=== PATIENT | male | born 1990 | race Caucasian/White ===

== ENCOUNTER 2016-06-17 11:11 | Emergency (ER) | payer MEDICAID ==
[~2016-06-17] VITALS: Ht 177.8 cm; Wt 119.5 kg
[2016-06-17 11:14] VITALS: Ht 177.8 cm; Wt 119.5 kg
--- NOTE | 2016-06-17 20:07 | ERD ---
ER Documentation Chief Complaint Date/Time DATE: 06/17/16 TIME: 20:00 Chief Complaint insomnia only sleeping 6-7 hrs a night x 2 weeks and anxiety HPI 25-year-old man is states is a recent immigrant from [place] states he has had difficulties sleeping at night because he has either been sleeping in his father 's garage which she states at times can get loud, or in a hotel room such as last night. He states the hotel was very noisy and therefore he had difficulty sleeping. He states sometimes he hears sounds in his ears as well. He denies history of diagnosis of hypertension and he states he is managing his symptoms by "smoking weed", but would like something to help him sleep at nights. He denies suicidal homicidal ideation, no fevers or chills, no weight loss, no vomiting or diarrhea, no domestic violence. ROS All systems reviewed and are negative except as per history of present illness. Medications Home Meds Reported Medications [Unknown] No Conflict Check 04/21/09 Allergies Allergies: Coded Allergies: No Known Allergy (Unverified , 06/17/16) PMhx/Soc Denies Medical and Surgical Hx: pt denies Medical Hx, pt denies Surgical Hx Hx Alcohol Use: Yes Smoking Status: Current every day smoker FmHx Family History: No diabetes Physical Exam Vitals Vital Signs Date Time Temp Pulse Resp B/P Pulse Ox O2 Delivery O2 Flow Rate FiO2 06/17/16 11:14 98.1 106 18 168/100 99 Physical Exam GENERAL: Well-developed, anxious HEENT: Moist mucous membranes, pink conjunctiva, no cervical spine tenderness or step-off deformities, no goiter, no jaundice or icterus, extraocular movements intact without pain. No submandibular induration, and no pharyngeal erythema NEURO: Alert and oriented 3, cranial nerves II through XII intact bilaterally, pupils equal round reactive to light, no focal deficits or facial asymmetry, sensation intact distally Strength 5/5 in upper and lower extremities bilaterally CARDIAC: Tachycardic and regular, no murmurs rubs or gallops LUNGS: Clear bilaterally no wheezing crackles or stridor ABDOMEN: Soft nontender, no guarding, no rigidity, no rebound, no psoas sign no obturator sign. Normoactive bowel sounds SKIN: Warm and dry to touch, no abrasions, contusions, or hematomas, no lacerations, no ecchymosis, no target lesions, and without ulcers EXTREMITIES: No clubbing cyanosis or edema, calves are bilaterally symmetrical, no Homans sign, no popliteal cord sign. Distal pulses equal and bilateral PSYCH: Anxious Procedures/MDM Patient stated he wanted medication to help him sleep although upon further HPI readily admitted that the reason he was not sleeping was because of his situation at nights which included sleeping in either allowed motel room or garage. He admitted to being anxious and admitted that he was hypertensive but stated he is managing his symptoms by smoking weed. He appears anxious here in the emergency department and has a bizarre affect and given some of the other things she stated I suspect he has early paranoid schizophrenia. He is still able to make his own decisions and he was refusing all medications including antihypertensives. I refused to prescribe hypnotics, which it seems is what he wanted, instead I recommended he stay for further evaluation and management of his high blood pressure, and also recommended a tele-psychiatry evaluation. Patient refused and again denied suicidal homicidal ideation. I gave him both verbal and written recommendations and instructions and provided him the address and phone number to multiple nearby clinics. Differential diagnoses considered, included but not limited to acute coronary syndrome, pulmonary embolism, aortic dissection, abdominal aortic aneurysm, sepsis, stroke, meningitis, encephalitis, pneumonia, appendicitis, cholecystitis , bowel obstruction, pyelonephritis, nephrolithiasis, cystitis, as well as metabolic, hematologic, and electrolyte abnormalities. As well as abscess, cellulitis, fractures, and dislocations. Patient feels much better at this time, and vital signs are normal, symptoms have improved. I did give strict instructions to return to the ED if symptoms continue or worsen, patient will otherwise follow-up with primary care physician. Patient understood instructions and agreed to plan. Departure Diagnosis: Primary Impression: Anxiety Additional Impressions: Hypertension Hypertension type: essential hypertension Qualified Code: I10 - Essential hypertension Schizophrenia Schizophrenia type: unspecified Qualified Code: F20.9 - Schizophrenia, unspecified type Condition: Good Patient Instructions: Anxiety Reaction, Insomnia, Schizophrenia, Paranoid Type Referrals: COMMUNITY CLINICS YOU HAVE RECEIVED A MEDICAL SCREENING EXAM AND THE RESULTS INDICATE THAT YOU DO NOT HAVE A CONDITION THAT REQUIRES URGENT TREATMENT IN THE EMERGENCY DEPARTMENT. FURTHER EVALUATION AND TREATMENT OF YOUR CONDITION CAN WAIT UNTIL YOU ARE SEEN IN YOUR DOCTORS OFFICE WITHIN THE NEXT 1-2 DAYS. IT IS YOUR RESPONSIBILITY TO MAKE AN APPOINTMENT FOR FOLOW-UP CARE. IF YOU HAVE A PRIMARY DOCTOR --you should call your primary doctor and schedule an appointment IF YOU DO NOT HAVE A PRIMARY DOCTOR YOU CAN CALL OUR PHYSICIAN REFERRAL HOTLINE AT IF YOU CAN NOT AFFORD TO SEE A PHYSICIAN YOU CAN CHOSE FROM THE FOLLOWING [facility] [address] [facility] [address] [facility] [address] [facility] [address] [facility] [address] [facility]. [facility] [address] [facility] [facility] YOU HAVE RECEIVED A MEDICAL SCREENING EXAM AND THE RESULTS INDICATE THAT YOU DO NOT HAVE A CONDITION THAT REQUIRES URGENT TREATMENT IN THE EMERGENCY DEPARTMENT. FURTHER EVALUATION AND TREATMENT OF YOUR CONDITION CAN WAIT UNTIL YOU ARE SEEN IN YOUR DOCTORS OFFICE WITHIN THE NEXT 1-2 DAYS. IT IS YOUR RESPONSIBILITY TO MAKE AN APPOINTMENT FOR FOLOW-UP CARE. IF YOU HAVE A PRIMARY DOCTOR --you should call your primary doctor and schedule and appointment IF YOU DO NOT HAVE A PRIMARY DOCTOR YOU CAN CALL OUR PHYSICIAN REFERRAL HOTLINE AT . IF YOU CAN NOT AFFORD TO SEE A PHYSICIAN YOU CAN CHOSE FROM THE FOLLOWING [facility]: [facility] [address] [place] [address] [facility] [address] [place] [address] [facility] [address] [place] [address] PB YBARRA MD Jun 17, 2016 20:07
== END 2016-06-17 12:47 | disposition home or self-care (01) ==
LOC: FTE 11:11
DX: F41.9 Anxiety disorder, unspecified (principal); I10 Essential (primary) hypertension; F20.9 Schizophrenia, unspecified; F17.210 Nicotine dependence, cigarettes, uncomplicated
CPT/HCPCS: 99282

== ENCOUNTER 2017-11-16 15:28 | Inpatient (IN) | END 2017-11-17 18:08 | disposition home or self-care (01) | DRG 340 ==

== ENCOUNTER 2017-11-20 17:33 | Emergency (ER) | END 2017-11-20 18:48 | disposition home or self-care (01) ==

== ENCOUNTER 2018-08-20 22:59 | Emergency (ER) | payer OTHER ==
[~2018-08-20] VITALS: Ht 180.3 cm; Wt 123.5 kg
[~2018-08-20 22:59] MED LIST: AMOX1TAB10 PO; DOCU-144 PO; HYDR-4011 PO; WORK NOTE
[2018-08-20 23:14] VITALS: Ht 180.3 cm; Wt 123.5 kg
[2018-08-21] MEDS ORDERED: KETOROLAC 30 MG INJ IM STA (01:15)
[2018-08-21] MEDS ORDERED: IBUP-1542 PO (01:16)
--- NOTE | 2018-08-21 01:16 | ERD ---
ER Documentation Chief Complaint Chief Complaint neck, R shoulder, & upper back pains x months; just took med marijuana HPI 27-year-old male with past medical history of hypertension who presents with couple complaints including neck pain, right shoulder pain, upper back pain over the past several months. Patient is poor historian. Patient's brother Marlo and waiting area asked to give supplemental history. Per discussion with patient's brother who lives with patient patient with complaint of chest pain and single episode of shortness of breath earlier today. Per brother patient has not seen a PMD in some years and does not recall the last time he saw a regular doctor. He currently does not take any medications despite diagnosis of hypertension. At time of evaluation patient nontoxic-appearing but tangential in answering questions. He otherwise denies recent illness, fall or trauma, nausea, vomiting, diarrhea, abdominal pain, urinary symptoms. Patient states she smoked medical on a recently but otherwise denies recent drug use or alcohol abuse. ROS All systems reviewed and are negative except as per history of present illness. Medications Home Meds Active Scripts Ibuprofen* (Motrin*) 600 Mg Tab, 600 MG PO Q6H PRN for PAIN AND OR ELEVATED TEMP, #30 TAB Prov:WILLIAM DOMÍNGUEZ PA-C 08/21/18 [Work Note] No Conflict Check Please excuse MrTadeo Duarte attending work from 11/16/2017 to 11/23/2017 due to his medical condition and hospitalization. Thank you Prov:DEWEY BECERRA V. ATHLETICS DIRECTOR 11/17/17 Docusate Sodium* (Colace*) 100 Mg Capsule, 100 MG PO BID, #60 CAP Prov:BECERRA,DEWEY V. ATHLETICS DIRECTOR 11/17/17 Hydrocodone/Acetaminophen (Sidman 5-325 Tablet) 1 Each Tablet, 1 EACH PO Q6, #20 TAB Prov:BECERRA,DEWEY V. ATHLETICS DIRECTOR 11/17/17 Amoxicillin/Potassium Clav (Amox-Clav 875-125 mg Tablet) 875-125 mg Tab, 1 TAB PO BID, #20 TAB Prov:BECERRA,DEWEY V. ATHLETICS DIRECTOR 11/17/17 Allergies Allergies: Coded Allergies: No Known Allergy (Unverified , 11/20/17) PMhx/Soc History of Surgery: Yes (appendectomy) Anesthesia Reaction: No Hx Neurological Disorder: No Hx Respiratory Disorders: No Hx Cardiac Disorders: No (HTN) Hx Psychiatric Problems: No Hx Miscellaneous Medical Probl: Yes (HTN) Hx Alcohol Use: Yes (QUIT 2016) Hx Substance Use: Yes (MARIJUANA) Hx Tobacco Use: Yes Smoking Status: Current every day smoker FmHx Family History: No diabetes, No coronary disease, No other Physical Exam Vitals Vital Signs Date Temp Pulse Resp B/P (MAP) Pulse Ox O2 O2 Flow FiO2 Time Delivery Rate 08/20/18 99.7 109 20 175/83 98 23:14 (113) Physical Exam Const: No acute distress, tangential Head: Atraumatic Eyes: Normal Conjunctiva ENT: Normal External Ears, Nose and Mouth. Neck: Full range of motion. No meningismus. Resp: Clear to auscultation bilaterally Cardio: Regular rate and rhythm, no murmurs Abd: Soft, non tender, non distended. Normal bowel sounds Skin: No petechiae or rashes Back: No midline or flank tenderness Ext: No cyanosis, or edema Neur: Awake and alert Psych: Normal Mood and Affect Results 24 hrs Current Medications Medications Dose Sig/Hipolito Start Time Status Last (Trade) Ordered Route PRN Stop Time Admin Dose Reason Admin Ketorolac 30 mg ONCE STAT 08/21/18 DC 08/21/18 Tromethamine IM 01:15 01:27 (Toradol) 08/21/18 01:16 Procedures/MDM 27-year-old presents with multiple musculoskeletal complaints. I have low suspicion for acute process any further emergent care work-up. ED course: Toradol, will discharge with NSAIDs, strict return precautions complaint to patient as well as his brother in detail. EKG: Rate/Rhythm: Normal Sinus Rhythm QRS, ST, T-waves: No changes consistent w/ acute ischemia Impression: No evidence of ischemia or arrhythmia EKG reviewed by attending of record. Blood Pressure Assessment: Patient's blood pressure was elevated (>120/80) but appears stable without evidence of hypertension emergency or urgency. The patient was counseled about the risks of hypertension and urged to pursue outpatient monitoring and therapy within a week with their primary care physician. DISPOSITION PLAN: We discussed follow up with the patient's primary care doctor within 24 to 48 hours. Patient counseled regarding my diagnostic impression and care plan. Prior to discharge all questions answered. Pt agrees with treatment plan and understands strict return precautions. Precautionary instructions provided including instructions to return to the ER if not improving or for any worsening or changing symptoms or concerns. Disclaimer: Inadvertent spelling and grammatical errors are likely due to EHR/dictation software use and do not reflect on the overall quality of patient care. Also, please note that the electronic time recorded on this note does not necessarily reflect the actual time of the patient encounter. Departure Diagnosis: Primary Impression: Chest pain Condition: Stable WILLIAM DOMÍNGUEZ PA-C Aug 21, 2018 01:16
[2018-08-21 02:35] VITALS: BP 158/98; PULSE 76; RESP 16
== END 2018-08-21 02:39 | disposition home or self-care (01) ==
LOC: FTE 22:59
DX: I10 Essential (primary) hypertension (principal); F17.210 Nicotine dependence, cigarettes, uncomplicated
CPT/HCPCS: 93005; 96372; J1885; Z7502

== ENCOUNTER 2018-10-30 02:16 | Emergency (ER) | payer OTHER ==
[~2018-10-30] VITALS: Ht 177.8 cm; Wt 128.0 kg
[~2018-10-30 02:16] MED LIST changes: +ACET500C5 PO; +IBUP-1542 PO
[2018-10-30 02:38] VITALS: BP 132/96; PULSE 84; RESP 17; Ht 177.8 cm; Wt 128.0 kg
[2018-10-30] MEDS ORDERED: ACETAMINOPHEN 500 MG TAB PO STA (03:21)
== END 2018-10-30 03:51 | disposition home or self-care (01) ==
LOC: FTE 02:16
DX: R10.11 Right upper quadrant pain (principal); I10 Essential (primary) hypertension; F17.210 Nicotine dependence, cigarettes, uncomplicated
CPT/HCPCS: Z7502; Z7610; 99282

== ENCOUNTER 2018-12-19 13:51 | Emergency (ER) | payer OTHER ==
[~2018-12-19] VITALS: Ht 172.7 cm; Wt 122.7 kg
[~2018-12-19 13:51] MED LIST changes: +IBUP800T48 PO
[2018-12-19 13:57] VITALS: BP 156/76; PULSE 121; RESP 24; Ht 172.7 cm; Wt 122.7 kg
== END 2018-12-19 16:15 | disposition home or self-care (01) ==
LOC: FTE 13:51
DX: S09.93XA Unspecified injury of face, initial encounter (principal); S09.90XA Unspecified injury of head, initial encounter; Y04.8XXA Assault by other bodily force, initial encounter
CPT/HCPCS: 70450; 70486; Z7502